=== PATIENT | female | born 1990 | race Caucasian/White ===

== ENCOUNTER 2022-10-15 10:29 | Emergency (ER) | payer MEDICAID ==
[~2022-10-15] VITALS: Ht 160 cm; Wt 68.0 kg
[2022-10-15 10:29] VITALS: BP_SYST 134
[2022-10-15] MEDS ORDERED: predniSONE 20 MG TABLET PO ONE (11:30)
[2022-10-15] MEDS ORDERED: guaiFENesin/DEXTROMETHORPHAN 1 EACH TAB.ER.12H PO ONE (11:30)
[2022-10-15] MEDS ORDERED: IPRATROPIUM/ALBUTEROL SULFATE 3 ML AMPUL.NEB (DUONEB) INH ONE (11:30)
[2022-10-15 11:35] LABS: BILIRUBIN,URINE NEGATIVE (NEGATIVE); COLOR,URINE YELLOW (YELLOW); GLUCOSE,URINE NEGATIVE (NEGATIVE); KETONES,URINE NEGATIVE (NEGATIVE); LEUKOCYTE ESTERASE ,URINE NEGATIVE (NEGATIVE); NITRITE, URINE NEGATIVE (NEGATIVE); PH,URINE 6.5 (5.0-8.0); PROTEIN URINE NEGATIVE (NEGATIVE); UROBILINOGEN,URINE 0.2 (0.2-1.0)
[2022-10-15 11:37] LABS: BLOOD, URINE TRACE (NEGATIVE); CLARITY/URINE SLIGHTLY HAZY (CLEAR)
[2022-10-15 11:54] LABS: BASOPHILS % (AUTO) 0.4 % (0.0-2.0); EOSINOPHILS # (AUTO) 0.2 K/uL (0.0-0.4); EOSINOPHILS % (AUTO) 1.9 % (0.0-4.0); HEMATOCRIT 42.2 % (36-48); HEMOGLOBIN 14.6 g/dL (12.0-16.0); LYMPHOCYTES # (AUTO) 1.9 K/uL (1.0-5.5); MEAN CORPUSCULAR HEMOGLOBIN 32 pg (27-31); MEAN CORPUSCULAR HGB CONC 35 % (32-36); MEAN CORPUSCULAR VOLUME 91 fL (79.0-98.0); MONOCYTES # (AUTO) 0.9 K/uL (0.0-1.0); MONOCYTES % (AUTO) 8.3 % (1.7-9.3); NEUTROPHILS # (AUTO) 7.2 K/uL (1.8-7.7); NEUTROPHILS % (AUTO) 70.4 % (40.0-70.0); PLATELET COUNT (AUTO) 252 K/uL (130-430); RED BLOOD CELL COUNT(AUTO) 4.62 MIL/uL (4.2-6.2); RED CELL DISTRIBUTION WIDTH 12.8 % (9.0-15.0); WHITE BLOOD COUNT (AUTO) 10.2 K/uL (4.8-10.8)
[2022-10-15 12:17] LABS: ANION GAP 8 (5-15); CALCIUM 8.8 mg/dL (8.4-11.0); CHLORIDE 106 mmol/L (98-107); CREATININE 0.66 mg/dL (0.55-1.30); GLUCOSE 92 mg/dL (70-99); PROTHROMBIN TIME 20.1 SECS (9.5-12.5); UREA NITROGEN, BLOOD 5 mg/dL (8-21)
[2022-10-15 12:18] LABS: GFR AFRICAN AMERICAN 134 mL/min (>90)
[2022-10-15 12:29] LABS: ALANINE AMINOTRANSFERASE 18 U/L (12-78); ASPARTATE AMINOTRANSFERASE 11 U/L (10-37); TOTAL BILIRUBIN 0.5 mg/dL (0.0-1.0)
[2022-10-15 12:46] LABS: BACTERIA,URINE FEW /HPF (None Seen); RBC,URINE 0-3 /HPF (0-3); WBC,URINE 0-3 /HPF (0-3)
[2022-10-15] MEDS ORDERED: FLUT16SP16 NS (13:35)
[2022-10-15] MEDS ORDERED: ALBMDI INH (13:36)
[2022-10-15] MEDS ORDERED: PRED20TA PO (13:36)
[2022-10-15] MEDS ORDERED: PSEU120T57 PO (13:36)
[2022-10-15] MEDS ORDERED: PHEDM120 PO (13:36)
[2022-10-15 14:03] VITALS: BP_SYST 134
[2022-10-15] MEDS ORDERED: FAMOTIDINE PF 20 MG/2 ML VIAL ONE (19:04)
== END 2022-10-15 14:01 | disposition home or self-care (01) ==
LOC: SED 10:29
DX: J42 Unspecified chronic bronchitis (principal); R79.0 Abnormal level of blood mineral; R05.9 Cough, unspecified; R07.9 Chest pain, unspecified; R50.9 Fever, unspecified; Z79.899 Other long term (current) drug therapy; Z20.822 Contact with and (suspected) exposure to COVID-19
CPT/HCPCS: 99285; 71046; 87426; 80053; 81000; 85025; 85379; 85610; 85730; 87040; 87086; 84484; 36415; 93005; 94640; 83605; 87804 ×2; J7512; J3490